=== PATIENT | female | born 1970 | race Caucasian/White ===

== ENCOUNTER 2017-04-13 19:22 | Observation (INO) ==
[2017-04-13] MEDS ORDERED: GI Cocktail 40 ML EACH PO ONE (19:44)
[2017-04-13 19:55] LABS: Basophils # 0.1 K/mcL (0.0-0.2); Basophils % 0.4 %; Eosinophils # 0.3 K/mcL (0.0-0.6); Eosinophils % 2.4 %; Hematocrit 42.3 % (35.3-44.9); Hemoglobin 13.6 g/dL (11.5-15.4); Immature Granulocytes % 0.8 % (0-4); Lymphocytes # 3.3 K/mcL (0.6-4.6); Lymphocytes % 22.7 %; Mean Corpuscular HGB Conc 32.2 g/dL (31.6-35.5); Mean Corpuscular Hemoglobin 30.1 pg (28.0-33.3); Mean Corpuscular Volume 93.6 fL (83.0-100.0); Mean Platelet Volume 9.2 fL (9.4-12.4); Monocytes # 1.1 K/mcL (0.0-1.3); Monocytes % 7.4 %; Neutrophils # 9.5 K/mcL (1.6-8.9); Platelet Count 244 K/mcL (140-400); Red Blood Count 4.52 M/mcL (3.82-4.97); Red Cell Distribution Width 13.5 % (11.5-14.5); Segmented Neutrophils % 66.3 %
--- NOTE | 2017-04-13 19:59 | Emergency Department Note ---
Disposition Clinical Impression: ESE (acute kidney injury), Elevated d-dimer Intractable nausea and vomiting Qualifiers: Vomiting type: unspecified Qualified Code(s): R11.2 - Nausea with vomiting, unspecified Disposition: Admitted As Inpatient Condition: Fair Time of Disposition: 23:08 Abdominal Pain HPI - General Chief Complaint: ED Abdominal Pain Stated Complaint: ABD Pain Source: patient Nursing Notes Reviewed: Yes Vital Signs Reviewed: Yes - History of Present Illness HPI Narrative: 46-year-old female with past medical history of smoking and hyperlipidemia presents to the emergency department with a 2 hour history of epigastric abdominal pain. Patient states that she was walking around at the [place] when the pain started. Patient does have hyperlipidemia and a history of smoking. Her sister has had a heart attack. Patient has had recent travel to [place]. She is also just recovering from a episode of pyelonephritis or she was prescribed ciprofloxacin a week ago. She states that her symptoms have improved since then. Pain Scale: 9 - Related Data Allergies Allergy/AdvReac Type Severity Reaction Status Date / Time No Known Allergies Allergy Verified 04/13/17 19:29 All systems ED: reviewed and negative except as stated. Review of Systems: As Per HPI Constitutional: Denies: fever, chills Cardiovascular: Denies: chest pain, palpitations Respiratory: Denies: cough, dyspnea, wheezes, hemoptysis Gastrointestinal: Reports: abdominal pain, nausea. Denies: vomiting Genitourinary: Denies: urgency, dysuria, frequency, hematuria Musculoskeletal: Reports: back pain Integumentary: Reports: other (Sun burn and skin peeling on the thoracic area of the spine.) Neurological: Reports: headache Endocrine: Denies: fatigue Abdominal Pain PMH - Past Medical History Medical history: Reports: hyperlipidemia Female Surgical History: Reports: herniorrhaphy, other Psychiatric history: Reports: anxiety, depression - Social History Smoking status: Current every day smoker Alcohol use: Reports: occasionally Drug use: Reports: none Physical Exam - General Limitations: no limitations General appearance: alert, other (46-year-old female appears mildly uncomfortable ) - Head Head exam: atraumatic, normocephalic - Eye Eye exam: Absent: scleral icterus, conjunctival injection - ENT ENT exam: mucous membranes dry - Neck Neck exam: Present: trachea midline. Absent: tenderness, meningismus - Chest Chest inspection: Present: symmetric chest wall rise - Respiratory Respiratory exam: Present: normal lung sounds bilaterally, other (O2 saturation 94% on room air). Absent: accessory muscle use - Cardiovascular Cardiovascular exam: Present: regular rate, normal rhythm, normal heart sounds - Abdominal Exam Abdominal exam: Present: soft, tenderness. Absent: distention, guarding, Leyva 's sign Abdominal tenderness: Present: epigastrium, mild - Extremities Exam Extremities exam: Present: normal capillary refill. Absent: tenderness, pedal edema - Back Exam Back exam: Present: full ROM. Absent: tenderness, CVA tenderness (R), CVA tenderness (L) - Neurological Exam Neurological exam: Present: alert, oriented X3 - Psychiatric Psychiatric exam: Present: normal affect, normal mood - Skin Skin exam: Present: warm, dry, intact, normal color Course Course Narrative: 46-year-old female presents to the emergency department with a two-hour history of epigastric pain radiating to the right flank. Patient admits to having a recent episode of pyelonephritis for which she was on ciprofloxacin. Patient states that this pain does not feel like her kidney pain she was having before. Patient also admits to recent road trip to [place]. She denies any history of DVTs. Patient is a smoker. Patient does have history of smoking, hyperlipidemia, history of myocardial infarction in her sisters. At this time, I will obtain a CBC, CMP, troponin, chest x-ray, lipase, urinalysis. Patient is currently hemodynamically stable. I will give her a GI cocktail to see if that helps with some of her symptoms as well as Zofran for nausea. - Reevaluation(s) Reevaluation #1: Patient is currently having abdominal pain refractory to the GI consult. I will give her 4 mg of morphine. I will also obtain a CT scan of her abdomen and pelvis as she has an elevated creatinine of 1.53. I will administer a liter of normal saline to help with this acute kidney injury. Her oxygen saturation is 94% on room air. Patient has an elevated d-dimer of 687. Due to her elevated creatinine, we cannot perform a CT angiogram of her chest. Ventilation perfusion studies are not available here tonight so we will start the patient on standard dose heparin. Urology was consulted regarding the care of this patient. Their recommendation was to administration of IV fluids as well as anti-microbial's. We have started a gram of ceftriaxone at this time. I discussed this with the patient, and she agrees. Discussed the case with hospitalist Dr. Olguin and he agreed to have the patient admitted at this time. Patient is currently hemodynamically stable and her pain has went down to a 5 out of 10. Time: 23:07 Vital Signs Temperature 98.2 F 04/13/17 19:25 Pulse Rate 91 04/13/17 19:25 Respiratory Rate 18 04/13/17 19:25 Blood Pressure 141/96 04/13/17 19:25 O2 Sat by Pulse Oximetry 99 04/13/17 19:25 Temperature 98.2 F 04/13/17 19:25 Pulse Rate 80 04/13/17 21:59 Respiratory Rate 16 04/13/17 21:59 Blood Pressure 108/75 04/13/17 21:59 O2 Sat by Pulse Oximetry 95 04/13/17 21:59 Oxygen Delivery Oxygen Delivery Room Air Abdominal Pain - Medical Records Medical records reviewed: Yes I reviewed the patient's medical records. - Lab Data Lab results reviewed: Yes I reviewed the patient's lab results. Result diagrams: 04/13/17 19:40 04/13/17 19:40 Lab Results 04/13/17 04/13/17 04/13/17 Range/Units 19:40 19:40 19:40 WBC 14.4 H (4.3-11.1) K/mcL RBC 4.52 (3.82-4.97) M/mcL Hgb 13.6 (11.5-15.4) g/dL Hct 42.3 (35.3-44.9) % MCV 93.6 (83.0-100.0) fL MCH 30.1 (28.0-33.3) pg MCHC 32.2 (31.6-35.5) g/dL RDW 13.5 (11.5-14.5) % Plt Count 244 (140-400) K/mcL MPV 9.2 L (9.4-12.4) fL Immature Gran % 0.8 (0-4) % Seg Neutrophils % 66.3 % Lymphocytes % 22.7 % Monocytes % 7.4 % Eosinophils % 2.4 % Basophils % 0.4 % Neutrophils # 9.5 H (1.6-8.9) K/mcL Lymphocytes # 3.3 (0.6-4.6) K/mcL Monocytes # 1.1 (0.0-1.3) K/mcL Eosinophils # 0.3 (0.0-0.6) K/mcL Basophils # 0.1 (0.0-0.2) K/mcL PT (9.4-12.1) Seconds INR APTT (26.0-36.0) Seconds D-Dimer (0-500) ng/mLFEU Sodium 142 (136-145) mEq/L Potassium 3.6 (3.5-4.5) mEq/L Chloride 109 (98-109) mEq/L Carbon Dioxide 23 (19-29) mEq/L BUN 21 H (7-20) mg/dL Creatinine 1.52 H (0.57-1.11) mg/dL Est GFR ( Amer) 45 L (> 60) Est GFR (Non-Af Amer) 37 L (> 60) BUN/Creatinine Ratio 14 (6-26) Glucose 92 (70-99) mg/dL Calculated Osmolality 297 (280-300) Calcium 9.1 (8.6-10.8) mg/dL Total Bilirubin 0.2 (0.2-1.2) mg/dL AST 15 (5-34) Units/L ALT 9 (0-55) Units/L Alkaline Phosphatase 78 (38-126) Units/L Troponin I 0.01 (0-0.03) ng/mL Serum Total Protein 6.8 (6.0-8.3) g/dL Albumin 3.7 (3.5-5.0) g/dL Globulin 3.1 (2.4-3.5) g/dL Albumin/Globulin Ratio 1.2 (1.1-2.2) Lipase 12 (8-78) Units/L Urine Color (Yellow) Urine Clarity (Clear) Urine pH (5.0-8.0) pH Units Ur Specific [place] (1.010-1.025) Urine Protein (Neg-Trace) mg/dL Urine Glucose (UA) (Normal) mg/dL Urine Ketones (Negative) mg/dL Urine Blood (Negative) Urine Nitrite (Negative) Urine Bilirubin (Negative) Urine Urobilinogen (Normal) mg/dL Ur Leukocyte Esterase (Negative) Urine Microscopic RBC (0-3) per hpf Urine Microscopic WBC (0-3) per hpf Ur Squamous Epith Cells (None-Few) per lpf Urine Bacteria (None-Few) per hpf Hyaline Casts (None-Few) per lpf Ur Culture Indicated? (NO) Urine Test (Negative) 04/13/17 04/13/17 04/13/17 Range/Units 20:00 21:10 21:10 WBC (4.3-11.1) K/mcL RBC (3.82-4.97) M/mcL Hgb (11.5-15.4) g/dL Hct (35.3-44.9) % MCV (83.0-100.0) fL MCH (28.0-33.3) pg MCHC (31.6-35.5) g/dL RDW (11.5-14.5) % Plt Count (140-400) K/mcL MPV (9.4-12.4) fL Immature Gran % (0-4) % Seg Neutrophils % % Lymphocytes % % Monocytes % % Eosinophils % % Basophils % % Neutrophils # (1.6-8.9) K/mcL Lymphocytes # (0.6-4.6) K/mcL Monocytes # (0.0-1.3) K/mcL Eosinophils # (0.0-0.6) K/mcL Basophils # (0.0-0.2) K/mcL PT 11.2 (9.4-12.1) Seconds INR 1.0 APTT 29.2 (26.0-36.0) Seconds D-Dimer 683 H (0-500) ng/mLFEU Sodium (136-145) mEq/L Potassium (3.5-4.5) mEq/L Chloride (98-109) mEq/L Carbon Dioxide (19-29) mEq/L BUN (7-20) mg/dL Creatinine (0.57-1.11) mg/dL Est GFR ( Amer) (> 60) Est GFR (Non-Af Amer) (> 60) BUN/Creatinine Ratio (6-26) Glucose (70-99) mg/dL Calculated Osmolality (280-300) Calcium (8.6-10.8) mg/dL Total Bilirubin (0.2-1.2) mg/dL AST (5-34) Units/L ALT (0-55) Units/L Alkaline Phosphatase (38-126) Units/L Troponin I (0-0.03) ng/mL Serum Total Protein (6.0-8.3) g/dL Albumin (3.5-5.0) g/dL Globulin (2.4-3.5) g/dL Albumin/Globulin Ratio (1.1-2.2) Lipase (8-78) Units/L Urine Color Yellow (Yellow) Urine Clarity Cloudy A (Clear) Urine pH 6.0 (5.0-8.0) pH Units Ur Specific [place] 1.009 L (1.010-1.025) Urine Protein 100 H (Neg-Trace) mg/dL Urine Glucose (UA) Normal (Normal) mg/dL Urine Ketones Negative (Negative) mg/dL Urine Blood Large H (Negative) Urine Nitrite Negative (Negative) Urine Bilirubin Negative (Negative) Urine Urobilinogen Normal (Normal) mg/dL Ur Leukocyte Esterase Negative (Negative) Urine Microscopic RBC TNTC H (0-3) per hpf Urine Microscopic WBC 0-3 (0-3) per hpf Ur Squamous Epith Cells Many H (None-Few) per lpf Urine Bacteria None Seen (None-Few) per hpf Hyaline Casts None Seen (None-Few) per lpf Ur Culture Indicated? NO (NO) Urine Test Negative (Negative) - EKG Data EKG attestation: Yes I reviewed and interpreted this EKG. EKG results narrative: 19:47 Ventricular rate 79 bpm, OK interval 149 ms, QRS duration 86 ms, QT 375 ms, QTC 402 ms, normal axis. Sinus rhythm with a ventricular rate of 79 bpm. There are no ischemic ST segment changes in this EKG. There is no previous EKG to compare this study to. Critical Care Time Critical Care Time: Yes Total Critical Care Time: 45 Attestation: Critical care performed: Time is exclusive of separately billable procedures. Time includes: direct patient care, patient reassessment, coordination of patient care, interpretation of data (laboratory data, radiology data, and respiratory data), review of patient's medical records, medical consultation and documentation of patient care. Procedures included in critical care time: Procedures excluded from critical care time: Attestation Statement - Attestation Attestation: I, Paul Batista MD, personally evaluated this patient and discussed their management with the resident physician. I reviewed the resident's note and agree with the documented findings, medical decision making, and plan of care. 46-year-old female presents to the emergency department with a complaint of acute onset of severe pain in a band like area around the epigastric area and upper chest. This started a few hours prior to arrival. She complains of nausea but no vomiting. No diarrhea. No fever. No history of similar episodes or known abdominal problems. No GI bleed symptoms. No urinary symptoms. Some shortness of breath. On examination patient is a well-developed well-nourished well-appearing female in no acute distress. She is alert and oriented 3. There is no cyanosis or diaphoresis. Breath sounds are clear and equal bilaterally. Heart regular rate and rhythm. Abdomen is soft with present bowel sounds. There is moderate epigastric tenderness with no guarding or rebound tenderness. Mild bilateral CVA tenderness. Labs reviewed. WBC 14.4. Patient did have an elevated d-dimer at 683. Creatinine is elevated at 1.52. Patient has no known prior history of any kidney problems. Urinalysis shows too numerous to count RBCs. EKG normal. Chest x-ray negative. CT of the abdomen and pelvis obtained and shows: Bilateral urothelial thickening and perinephric stranding, favored to be due to infection. Recently passed calculi could present with a similar appearance, though this is considered less likely. Cholelithiasis without evidence of cholecystitis. Unable to obtain a CTA due to patient's renal function. Patient will be admitted and placed on a heparin drip. Dr. Montemayor consulted the urologist on- call, Dr. Rivero, who recommended IV fluids and antibiotics and admission by the hospitalist. The hospitalist, Dr. Olguin, was consulted and accepted admission of the patient.
[2017-04-13 20:07] LABS: Albumin 3.7 g/dL (3.5-5.0); Albumin/Globulin Ratio 1.2 (1.1-2.2); Bilirubin,Total 0.2 mg/dL (0.2-1.2); Calcium 9.1 mg/dL (8.6-10.8); Globulin 3.1 g/dL (2.4-3.5); Potassium 3.6 mEq/L (3.5-4.5); Total Protein 6.8 g/dL (6.0-8.3)
[2017-04-13] MEDS ORDERED: 0.9 % Sodium Chloride 1,000 ML IVC ONE ×2 (20:10→20:50)
[2017-04-13] MEDS ORDERED: *HR* Morphine 2 MG/ML SYRINGE IVP ONE ×2 (20:11→20:50)
[2017-04-13] MEDS ORDERED: Ondansetron 4 MG/2 ML VIAL IVP ONE ×3 (20:43→22:24)
[2017-04-13] MEDS ORDERED: Ondansetron 4 MG/2 ML VIAL ONE (20:45)
[2017-04-13 21:16] LABS: Bilirubin,Urine Negative (Negative); Blood,Urine Large (Negative); Clarity,Urine Cloudy (Clear); Color,Urine Yellow (Yellow); Glucose,Urine (UA) Normal (Normal); Ketones,Urine Negative (Negative); Leukocyte Esterase,Urine Negative (Negative); Nitrite,Urine Negative (Negative); Protein,Urine 100 mg/dL (Neg-Trace); Specific Gravity,Urine 1.009 (1.010-1.025); Urobilinogen,Urine Normal (Normal)
[2017-04-13 21:17] LABS: Bacteria,Urine None Seen per hpf (None-Few); Hyaline Casts,Urine None Seen per lpf (None-Few); RBC,Urine TNTC per hpf (0-3); Squamous Epithelial Cell,Urine Many per lpf (None-Few); WBC,Urine 0-3 per hpf (0-3)
[2017-04-13] MEDS ORDERED: *HR* Heparin 5,000 UNIT/ML VIAL IVP PRN ×2 (22:31)
[2017-04-13] MEDS ORDERED: *HR* Heparin 5,000 UNIT/ML VIAL IVP ONE (22:31)
[2017-04-13 22:43] LABS: Prothrombin Time 11.2 Seconds (9.4-12.1)
[2017-04-13] MEDS ORDERED: Heparin 25,000 UNIT/500 ML D5W 25,000 UNIT/500 ML MLS IVC SCH (22:45)
[2017-04-13 22:46] LABS: Activated Partial Thrombo Time 29.2 Seconds (26.0-36.0)
[2017-04-13] MEDS ORDERED: *HR* Promethazine 25 MG/ML VIAL IVP ONE (22:52)
--- NOTE | 2017-04-14 00:30 | Event Note ---
Date of Encounter: 04/14/17 Time of Encounter: 00:26 Patient seen and examined with medical physicist. Suspected acute pyelonephritis. No obstructive uropathy on imaging. zero pus cells in urine probably because she is on 6th day of cipro now. Probably needs some IV antibiotcs. Check urine culture. She has lots of RBC in urine related to menstruation but no evident stone on imaging. Dimer is elevated and ED started patient on high dose heparin drip till VQ scan is obtained in am (because of ESE ), however, she does not have any symptoms or signs to suggest PE. Pain is not pleuritic. No SOB, tachycardia or hypoxia. Will wait till she get VQ scan in am.
[2017-04-14] MEDS: 0.9 % Sodium Chloride 1,000 ML IVC SCH ×3 (00:48→21:29)
[2017-04-14] MEDS: *HR* Heparin 5,000 UNIT/ML VIAL SQ SCH ×4 (00:48→21:30)
--- NOTE | 2017-04-14 00:52 | Internal Med History&Physical ---
Date of Encounter: 04/14/17 Time of Encounter: 23:30 Assessment and Plan (1) Pyelonephritis Current visit: Yes Status: Acute Patient has a known history of pyelonephritis. -Patient had been previously treated on ciprofloxacin for 7 days. -No obstructive uropathy is present on imaging. -No white blood cells were found in the urine, however this could possibly be due to her course of antibiotics. -Urine culture ordered -Patient will be put on ceftriaxone 1 g daily. (2) Elevated d-dimer Current visit: Yes Status: Acute Patient's d-dimer was elevated at 683. -Patient does admit to a recent travel history from [place]. -No EKG changes, shortness of breath, or chest pain. -VQ scan ordered for the morning. -Patient will be placed on heparin 5000 3 times a day subcutaneous. (3) Intractable nausea and vomiting Current visit: Yes Status: Acute Patient given Zofran in the emergency department. -Patient's nausea has improved since her arrival. Qualifiers: Vomiting type: unspecified Qualified Code(s): R11.2 - Nausea with vomiting , unspecified Internal Medicine - H&P: HPI Admitted From: Home History of present illness: Ms. Peoples is a 46 year old female with a past medical history of hyperlipidemia who presented to the emergency department with a 2 hour history of epigastric abdominal pain. Patient stated that she was walking around the store when this pain started. Pain initially started in the epigastric region, then wrapped around both sides into her mid to lower back. Patient states that she has been recovering from an episode of pyelonephritis for which she was prescribed ciprofloxacin one week ago. Patient states that her initial symptoms of pyelonephritis have improved. Patient states that the pain she experienced with her initial bout of pyelonephritis was located in her lower back. Patient also admits to a recent road trip to [place]. She does have this history of smoking, rarely anemia, and a family history significant for myocardial infarction in her sisters. In the ER, patient was given morphine and Zofran. She currently denies any nausea, vomiting, fever, chills, or changes in urination. Past Med Surg Social Fam HX - Past Medical History Medical history: hyperlipidemia Psychiatric history: anxiety, depression - Social History Smoking Status: Current every day smoker Packs per day: 1 Smokeless Tobacco Status: No Alcohol use: occasionally Drug use: none - Family History Mother Hx Family Cardiac Disorders: Yes (MYOCARDIAL INFARCTION.) Internal Medicine - H&P: Meds Rosuvastatin [Crestor] PO HS 04/13/17 [History] 3 Allergy/AdvReac Type Severity Reaction Status Date / Time No Known Allergies Allergy Verified 04/13/17 19:29 All Systems PM: A 10-system review of systems was performed and is negative for pertinent findings except as documented above in the HPI. - Constitutional Constitutional: no chills, no fever(s) - Cardiovascular Cardiovascular ROS IM: no chest pain, no diaphoresis, no dyspnea, no lightheadedness, no palpitations, no syncope - Respiratory Respiratory: no cough, no dyspnea, no wheezing, no excessive phlegm production - Gastrointestinal Gastrointestinal: abdominal pain - Constitutional Vitals: Temp Pulse Resp BP Pulse Ox 97.9 F 63 15 113/78 94 04/13/17 23:41 04/13/17 23:41 04/13/17 23:41 04/13/17 23:41 04/13/17 23:41 General appearance: Present: A&O X 3, pleasant, answers questions appropriately - Respiratory Respiratory exam: Present: CTAB. Absent: accessory muscle use, rales, rhonchi, wheezes - Cardiovascular Cardiovascular exam: Present: RRR, +S1, +S2. Absent: diastolic murmur, gallop, rubs, systolic murmur - GI/Abdominal GI/Abdominal exam: Present: tenderness Internal Med - H&P Results - Labs CBC & Chem 7: 04/13/17 19:40 04/13/17 19:40
[2017-04-14 05:06] LABS: Basophils % 0.3 %; Eosinophils # 0.1 K/mcL (0.0-0.6); Eosinophils % 0.8 %; Hematocrit 37.5 % (35.3-44.9); Hemoglobin 12.4 g/dL (11.5-15.4); Immature Granulocytes % 0.9 % (0-4); Lymphocytes # 1.6 K/mcL (0.6-4.6); Mean Corpuscular HGB Conc 33.1 g/dL (31.6-35.5); Mean Corpuscular Hemoglobin 31.4 pg (28.0-33.3); Mean Corpuscular Volume 94.9 fL (83.0-100.0); Mean Platelet Volume 9.6 fL (9.4-12.4); Monocytes # 0.9 K/mcL (0.0-1.3); Monocytes % 9.1 %; Neutrophils # 7.2 K/mcL (1.6-8.9); Platelet Count 189 K/mcL (140-400); Red Blood Count 3.95 M/mcL (3.82-4.97); Red Cell Distribution Width 13.7 % (11.5-14.5); Segmented Neutrophils % 72.9 %
[2017-04-14 05:25] LABS: Calcium 8.1 mg/dL (8.6-10.8); Magnesium 1.7 mg/dL (1.6-2.6); Potassium 4.4 mEq/L (3.5-4.5)
--- NOTE | 2017-04-14 07:08 | Urology - Consult Note ---
Date of Encounter: 04/14/17 Time of Encounter: 07:06 - Assessment and Plan (1) UTI (urinary tract infection) Current Visit: Yes Status: Acute Assessment and plan: Important to obtain outside urine culture results. I suspect she has had a persistent UTI for the last 2 months. Will require continued treatment. Outpatient by mouth antibiotics will be based on her initial culture. Will likely need to choose a non-nephrotoxic antibiotic such as Omnicef. Qualifiers: Urinary tract infection type: acute cystitis Hematuria presence: with hematuria Qualified Code(s): N30.01 - Acute cystitis with hematuria (2) ESE (acute kidney injury) Current Visit: Yes Status: Acute Assessment and plan: I suspect the acute kidney injury secondary to prolonged intake of nephrotoxic medications Cipro and ibuprofen; combined with recent illness from a UTI. CT scan shows no evidence of hydronephrosis or obstruction. The stranding may be reactive. Hopefully GFR will improve with IV hydration and avoidance of the nephrotoxic medications. I recommend a nephrology consult. If no improvement in GFR could consider stent placement but again there is no evidence of obstruction based on the recent CT scan Urology CN:HPI Consult date: 04/14/17 Reason for consult Urology: Other History of present illness: New patient to the urology service. Reports being treated for a UTI by her staffing program manager 2 months ago. She was prescribed Cipro. Unknown what the culture result was she says the office called and she was confirmed to have a UTI.. She has been on 3 rounds of Cipro. He presented to the emergency room because she had generalized upper abdominal discomfort and feelings of unwell. CT scan shows bilateral stranding. GFR at 38. She was admitted to the medicine service. She also admits to taking 2-3 ibuprofen per day for back issues, menstrual discomfort. No decrease in urine output. No history of kidney stones. Patient states she feels much better this morning Past Med Surg Social Fam HX - Past Medical History Medical history: hyperlipidemia Psychiatric history: anxiety, depression - Social History Smoking Status: Current every day smoker Packs per day: 1 Smokeless Tobacco Status: No Alcohol use: occasionally Drug use: none - Family History Mother Hx Family Cardiac Disorders: Yes (MYOCARDIAL INFARCTION.) Medications and Allergies Rosuvastatin [Crestor] PO HS 04/13/17 [History] 3 Allergy/AdvReac Type Severity Reaction Status Date / Time No Known Allergies Allergy Verified 04/13/17 19:29 Review of Systems - Constitutional fatigue, no chills, no fever(s) - EENT Nose, mouth and throat: no dizziness - Cardiovascular no chest pain - Respiratory no cough - Gastrointestinal abdominal pain, nausea - Genitourinary Genitourinary: no dysuria - Musculoskeletal back pain - Integumentary no erythema - Neurological no confusion - Psychiatric no anxiety - Hematologic/Lymphatic no easy bleeding - Allergic/Immunologic no throat swelling Exam Initial Vital Signs Temp Pulse Resp BP Pulse Ox 98.2 F 91 18 141/96 99 04/13/17 19:25 04/13/17 19:25 04/13/17 19:25 04/13/17 19:25 04/13/17 19:25 - General physical appearance Present: well developed, no distress - Eyes Present: PERRL - ENT Present: normal nares - Neck Present: no masses - Respiratory Present: normal respiratory effort - Cardiovascular Cardiovascular exam IM: RRR - Abdomen Abdomen: Present: soft - Integumentary Present: no rash - Neurologic Present: normal coordination. Absent: disoriented, confused Urology Results - Labs 04/14/17 04:13 04/14/17 04:13 Abnormal lab results D-Dimer 683 ng/mLFEU (0-500) H 04/13/17 20:00 Chloride 113 mEq/L (98-109) H 04/14/17 04:13 BUN 21 mg/dL (7-20) H 04/14/17 04:13 Creatinine 1.76 mg/dL (0.57-1.11) H 04/14/17 04:13 Est GFR ( Amer) 38 (> 60) L 04/14/17 04:13 Est GFR (Non-Af Amer) 31 (> 60) L 04/14/17 04:13 Calcium 8.1 mg/dL (8.6-10.8) L 04/14/17 04:13 C-Reactive Protein 13 mg/L (Less than 5) H 04/14/17 04:13 Urine Clarity Cloudy (Clear) A 04/13/17 21:10 Ur Specific [place] 1.009 (1.010-1.025) L 04/13/17 21:10 Urine Protein 100 mg/dL (Neg-Trace) H 04/13/17 21:10 Urine Blood Large (Negative) H 04/13/17 21:10 Urine Microscopic RBC TNTC per hpf (0-3) H 04/13/17 21:10 Ur Squamous Epith Cells Many per lpf (None-Few) H 04/13/17 21:10 Diabetes panel 04/14/17 Range/Units 04:13 Sodium 143 (136-145) mEq/L Potassium 4.4 (3.5-4.5) mEq/L Chloride 113 H (98-109) mEq/L Carbon Dioxide 23 (19-29) mEq/L BUN 21 H (7-20) mg/dL Creatinine 1.76 H (0.57-1.11) mg/dL Glucose 98 (70-99) mg/dL Calcium 8.1 L (8.6-10.8) mg/dL Calcium panel 04/14/17 Range/Units 04:13 Calcium 8.1 L (8.6-10.8) mg/dL Pituitary panel 04/14/17 Range/Units 04:13 Sodium 143 (136-145) mEq/L Potassium 4.4 (3.5-4.5) mEq/L Chloride 113 H (98-109) mEq/L Carbon Dioxide 23 (19-29) mEq/L BUN 21 H (7-20) mg/dL Creatinine 1.76 H (0.57-1.11) mg/dL Glucose 98 (70-99) mg/dL Calcium 8.1 L (8.6-10.8) mg/dL Adrenal panel 04/14/17 Range/Units 04:13 Sodium 143 (136-145) mEq/L Potassium 4.4 (3.5-4.5) mEq/L Chloride 113 H (98-109) mEq/L Carbon Dioxide 23 (19-29) mEq/L BUN 21 H (7-20) mg/dL Creatinine 1.76 H (0.57-1.11) mg/dL Glucose 98 (70-99) mg/dL Calcium 8.1 L (8.6-10.8) mg/dL All other labs normal. Consult Discharge Plan - Plan Referrals: NONE,PCP [Primary Care Provider] -
[2017-04-14] MEDS: Famotidine 20 MG TABLET PO SCH (09:31)
--- NOTE | 2017-04-14 17:13 | Electrocardiograph Report ---
[place] [address] Test Date: 2017-04-13 Pat Name: Kerri Peoples Department: 103 Room: 3B Gender: F Band Tumbler: EDGAR : 1970 Requested By: Leno Montemayor Order Number: [id number] Reading MD: Rama Cruz Measurements Intervals Maria Stein Rate: 79 P: 55 UT: 149 QRS: 70 QRSD: 86 T: 41 QT: 375 QTc: 410 Interpretive Statements SINUS RHYTHM Electronically Signed On 04-14-2017 17:12:09 EDT by Rama Cruz
--- NOTE | 2017-04-14 19:14 | Internal Med Progress Note ---
Date of Encounter: 04/14/17 Time of Encounter: 13:00 - Assessment and plan (1) Pyelonephritis Current Visit: Yes Status: Acute Assessment and plan: Currently on Rocephin, Urology requests original urine cultures from PCP offices to choose more specific abx. Continue IVF. Monitor WBCs and for fevers. (2) EES (acute kidney injury) Current Visit: Yes Status: Acute Assessment and plan: Nephrology consulted. Most likely from long courses of Cipro therapy. Must exclude other causes. (3) Elevated d-dimer Current Visit: Yes Status: Acute Assessment and plan: V/Q done today showing low probability of PE. - Subjective Interval history: Back pain subsided, no fevers since yesterday. - Constitutional Vitals: Temp Pulse Resp BP Pulse Ox 98.2 F 80 16 100/66 95 04/14/17 18:44 04/14/17 18:44 04/14/17 18:44 04/14/17 18:44 04/14/17 18:44 General appearance: Present: A&O X 3, pleasant, answers questions appropriately - Respiratory Respiratory exam: Present: CTAB. Absent: accessory muscle use, rales, rhonchi, wheezes - Cardiovascular Cardiovascular exam: Present: RRR, +S1, +S2. Absent: diastolic murmur, gallop, rubs, systolic murmur - GI/Abdominal GI/Abdominal exam: Present: normal bowel sounds, soft, no peritoneal signs. Absent: distended, tenderness - Additional comments: deferred Internal Medicine: Result - Labs CBC & Chem 7: 04/14/17 04:13 04/14/17 04:13 Labs: Short CBC 04/14/17 Range/Units 04:13 WBC 9.8 (4.3-11.1) K/mcL Hgb 12.4 (11.5-15.4) g/dL Hct 37.5 (35.3-44.9) % Plt Count 189 (140-400) K/mcL Neutrophils # 7.2 (1.6-8.9) K/mcL BMP 04/14/17 04:13 Sodium 143 Potassium 4.4 Chloride 113 H Carbon Dioxide 23 BUN 21 H Creatinine 1.76 H Glucose 98 Calcium 8.1 L - ABG Interpretation ABG results: PT/INR, D-dimer PT 11.2 Seconds (9.4-12.1) 04/13/17 20:00 D-Dimer 683 ng/mLFEU (0-500) H 04/13/17 20:00 - Impressions Impressions Pulmonary Perfusion Imaging 04/14/17 10:56 IMPRESSION: Very low probability for pulmonary embolism. D/ / Cheng Olivarez MD / Cheng Olivarez MD Interpreting Provider: Cheng Olivarez MD - VTE Reasons for not Prescribing Prophylaxis: Treatment not Indicated - Low risk for VTE Consult Discharge Plan - Plan Referrals: NONE,PCP [Primary Care Provider] -
[2017-04-15] MEDS: *HR* Heparin 5,000 UNIT/ML VIAL SQ SCH (05:55)
[2017-04-15 06:41] LABS: BUN/Creatinine Ratio 13 (6-26); Blood Urea Nitrogen 14 mg/dL (7-20); Calcium 8.2 mg/dL (8.6-10.8); Carbon Dioxide 23 mEq/L (19-29); Chloride 115 mEq/L (98-109); Glucose 90 mg/dL (70-99); Osmolality,Calculated 296 (280-300); Potassium 3.7 mEq/L (3.5-4.5); Sodium 143 mEq/L (136-145); eGFR For African Americans > 60 (> 60); eGFR For Non-African Americans 55 (> 60)
--- NOTE | 2017-04-15 06:50 | Event Note ---
Date of Encounter: 04/15/17 Time of Encounter: 06:48 GFR near normal today with hydration. no intervention or followup needed. I recommend discharge on culture specific ABX (if available based on outside records). If an option, keflex or omnicef would be good choices bc not nephrotoxic. no need for followup.
[2017-04-15 06:58] LABS: Basophils # 0.1 K/mcL (0.0-0.2); Basophils % 0.7 %; Eosinophils # 0.2 K/mcL (0.0-0.6); Eosinophils % 2.5 %; Hematocrit 36.2 % (35.3-44.9); Hemoglobin 11.7 g/dL (11.5-15.4); Immature Granulocytes % 0.9 % (0-4); Lymphocytes # 2.3 K/mcL (0.6-4.6); Lymphocytes % 33.2 %; Mean Corpuscular HGB Conc 32.3 g/dL (31.6-35.5); Mean Corpuscular Hemoglobin 30.1 pg (28.0-33.3); Mean Corpuscular Volume 93.1 fL (83.0-100.0); Mean Platelet Volume 9.9 fL (9.4-12.4); Monocytes # 0.6 K/mcL (0.0-1.3); Monocytes % 8.5 %; Neutrophils # 3.7 K/mcL (1.6-8.9); Platelet Count 181 K/mcL (140-400); Red Blood Count 3.89 M/mcL (3.82-4.97); Red Cell Distribution Width 14.1 % (11.5-14.5); Segmented Neutrophils % 54.2 %
[2017-04-15] MEDS: 0.9 % Sodium Chloride 1,000 ML IVC SCH (08:10)
[2017-04-15] MEDS: Famotidine 20 MG TABLET PO SCH (08:11)
--- NOTE | 2017-04-15 11:23 | Discharge Summary ---
Date of Encounter: 04/15/17 Time of Encounter: 11:20 - Discharge Diagnosis (1) Pyelonephritis Priority: Primary Status: Acute (2) ESE (acute kidney injury) Priority: Secondary Status: Acute (3) Intractable nausea and vomiting Priority: Secondary Status: Acute Qualifiers: Vomiting type: unspecified Qualified Code(s): R11.2 - Nausea with vomiting , unspecified - Discharge Medications Prescriptions: Cefdinir [Omnicef] 300 mg PO BID #18 capsule Home Medications: Rosuvastatin [Crestor] 20 mg PO HS 04/13/17 [History] Cefdinir [Omnicef] 300 mg PO BID #18 capsule 04/15/17 [Rx] Allergies/Adverse Reactions: 3 Allergy/AdvReac Type Severity Reaction Status Date / Time No Known Allergies Allergy Verified 04/13/17 19:29 Procedures/tests Complete & Pending: Procedures Performed prior 72 hours Category Date Time Status NM pul vent and perfuse [NM] Routine Exams 04/14/17 10:56 Completed Date of admission: 04/13/17 22:47 Primary care physician: PCP NONE Consults: 04/13/17 22:21 Consult to Urology [CONS] Routine Consulting Provider: Urology Alexa Reason for Consult: ESE, recent UTIs, flank pain Time Notified: 22:23 Call Completed: Yes Discharging clinician: Daysi Douglas Anticipated date of discharge: 04/15/17 - Patient Status Disposition: Home, Self-Care Condition: Good Functional capacity at discharge: independent ambulation Overall status at discharge: patient is progressing back to baseline - Discharge Instructions Instructions: Urinary Tract Infection in Women (DC) Follow Up With: NONE,PCP [Primary Care Provider] - (patient stated she will make a follow up appointment with her PCP. ) - Diet and Activity Activity: increase activity as tolerated Diet: advance to your usual diet Hospital course: Ms. Peoples is a 46 year old female patient with history of hyperlipidemia who is visiting from [place] presented to the presence of abdominal pain that began in the epigastric region and then wrapped around both sides into her back. Patient had been recently diagnosed with pyelonephritis and was prescribed ciprofloxacin. She has been taking this medication as prescribed. She underwent CT scan of the abdomen and pelvis here which showed bilateral urothelial thickening and perinephric stranding suggestive of acute infection. There was also concern for recently passed calculus and so urology was consulted. Per their evaluation, patient was recommended treatment for acute pyelonephritis with a non-nephrotoxic antibiotic. She also had acute kidney injury on presentation. Patient had been taking ciprofloxacin and ibuprofen. These medications were stopped and patient was given intravenous fluids with improvement in renal function. Presently she is doing much better. She no longer has abdominal pain although she does have some mild right flank pain. She is clinically stable for discharge on oral antibiotics. She will be discharged on Omnicef to complete treatment course for acute pyelonephritis. Attempts were made to obtain culture results from the facility where she also was diagnosed with pyelonephritis but so far we have not been able to obtain culture results. Urine culture here did not isolate any pathogens. - Time Spent with Patient Total time spent providing and/or coordinating discharge services: Less than 30 minutes (25 min) - Constitutional Vitals: Temp Pulse Resp BP Pulse Ox 98.1 F 67 15 111/68 94 04/15/17 07:48 04/15/17 07:48 04/15/17 07:48 04/15/17 07:48 04/15/17 07:48 General appearance: Present: A&O X 3, pleasant, answers questions appropriately - Respiratory Respiratory exam: Present: CTAB. Absent: accessory muscle use, rales, rhonchi, wheezes - Cardiovascular Cardiovascular exam: Present: RRR, +S1, +S2. Absent: diastolic murmur, gallop, rubs, systolic murmur - GI/Abdominal GI/Abdominal exam: Present: normal bowel sounds, soft, no peritoneal signs. Absent: distended, tenderness - Extremities Exam Extremities exam: Present: warm, radial pulses palpable and symmetrical. Absent : calf tenderness, cyanotic, pedal edema - Back Exam Back exam: Absent: CVA tenderness (L), CVA tenderness (R) - VTE Reasons for not Prescribing Prophylaxis: Treatment not Indicated - Low risk for VTE
[2017-04-15 11:35] VITALS: BP 102/67
== END 2017-04-15 12:10 | disposition home or self-care (01) ==
LOC: EMEROO 19:22 → 3BNU 19:22 → SUATTDRO 22:47 → 3BNU 23:28
PROVIDERS: ADMIT Student in an Organized Health Care Education/Training Program; ATTEND Internal Medicine